=== PATIENT | male | born 1980 | race Caucasian/White ===

== ENCOUNTER 2024-01-10 12:42 | Emergency (ER) | payer BC, SELFPAY ==
[2024-01-10 12:44] VITALS: BP 132/93
--- NOTE | 2024-01-10 14:59 | ED.GENMED ---
History of Present Illness
General
Chief Complaint: Head Injury
Time Seen by Provider: 01/10/24 13:02
History of Present Illness
History of Present Illness:
43-year-old male presents to the emergency department for evaluation of headache and nausea after striking his head on a rafter and loss of consciousness or vomiting. Does not take anticoagulant
Review of Systems
Review of Systems
Allergies reviewed?: Yes
All Other Systems: ROS reviewed and negative except as documented in HPI and ROS
Phy Exam
Physical Exam
Physical Exam:
GEN: Well appearing, NAD, WDWN
HEENT: Minor hematoma to the vertex of the scalp, no crepitus, oral mucosa moist, no scleral icterus, no nasal congestion
Cardiac: Regular rate
Lung: No respiratory distress, no tachypnea
MSK: No gross deformity or injuries
Skin: Good color, no pallor or jaundice, no rashes
Neuro: AO x3; CN II-XII grossly intact. BUE strength 5/5 in all gillette, sensation intact and symmetric. BLE strength 5/5 in all gillette, sensation intact and symmetric
Psych: Calm, cooperative
Course
Orders/Labs/Results
Orders:
Orders
01/10/24 13:13
CT Head W/o Iv Contrast Urgent
Comment:
Reason For Exam: head injury
Vital Signs
Initial and Last Documented VS:
Initial Vital Signs
Temp Pulse Resp BP Pulse Ox
98.3 F 66 16 132/93 98
01/10/24 12:44 01/10/24 12:44 01/10/24 12:44 01/10/24 12:44 01/10/24 12:44
Last Documented Vital Signs
Temp Pulse Resp BP Pulse Ox
98.3 F 66 16 132/93 98
01/10/24 12:44 01/10/24 12:44 01/10/24 12:44 01/10/24 12:44 01/10/24 12:44
MDM/Problems Addressed
MDM/Problems Addressed:
After initial evaluation I do not feel the patient requires imaging given that he is neurologically intact with a minor mechanism of injury however patient insist that his headache is quite severe and his significant other is concerned that his
symptoms thus we will pursue a CT of the head, this was obtained and was unremarkable for acute intracranial hemorrhage. Discussed concussion symptoms with the patient
*Critical Care Note
Total Time (30-74mins, 75-104mins- exclusive of procedures): Not Applicable
ED Attending Note
-
Portions of this chart may have been created with voice recognition software.� Occasional wrong word or��sound alike� substitutions may have occurred due to the inherent limitations of voice recognition software.
Discharge Plan
Departure
Patient Disposition: Home (Routine Discharge)
Date of Disposition: 01/10/24
Time of Disposition: 15:15
Patient with high blood pressure during this ER visit?: No
Discharge Problem:
CHI (closed head injury)
Instructions: Concussion, Adult (DC)
Referrals:
NONE,* [Family Provider] -
Interventions
Interventions:
*Risk Screen - Suicide Last Done: 01/10/24 12:44
*General Assessment Last Done: 01/10/24 12:44
*Neglect/Abuse Screening Last Done: 01/10/24 12:44
ED- Neurological Assessment Last Done: 01/10/24 12:55
ED-Skin Assessment Last Done: 01/10/24 12:55
Discharge Date and Time
Print Language: PANAMANIAN
== END 2024-01-10 15:25 | disposition home or self-care (01) ==
LOC: EMR 12:42
PROVIDERS: EMERGENCY PHYSICIAN Emergency Medicine
DX: S09.90XA Unspecified injury of head, initial encounter (principal); W22.09XA Striking against other stationary object, initial encounter
CPT/HCPCS: 99284; 70450